=== PATIENT | female | born 1995 | race African-American/Black ===

== ENCOUNTER 2020-07-15 12:51 | Emergency (ER) | payer SELFPAY ==
[~2020-07-15] VITALS: Ht 154.9 cm; Wt 47.0 kg
[2020-07-15 13:26] VITALS: BP 151/85
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
== END 2020-07-15 15:28 | disposition left against medical advice (07) ==
LOC: ER 12:51
DX: R56.9 Unspecified convulsions (principal); F12.10 Cannabis abuse, uncomplicated; F31.9 Bipolar disorder, unspecified; F41.9 Anxiety disorder, unspecified
CPT/HCPCS: 99281

== ENCOUNTER 2020-07-17 10:46 | Emergency (ER) | payer SELFPAY ==
[~2020-07-17] VITALS: Ht 162.6 cm; Wt 54.5 kg
[2020-07-17 11:00] VITALS: BP 151/121
[2020-07-17 11:44] LABS: BASO % 1 % (0-3); EOS % 0 % (0-3); HEMATOCRIT 30.6 % (36.0-47.0); HEMOGLOBIN 9.4 g/dL (12.0-15.5); LYMPH # 0.8 x10^3/uL (1.0-4.8); LYMPH % 11 % (24-48); MEAN CORPUSCULAR HEMOGLOBIN 21 pg (25-35); MEAN CORPUSCULAR HGB CONC 31 g/dL (31-37); MEAN CORPUSCULAR VOLUME 69 fL (79-100); MONO # 0.3 x10^3/uL (0.0-1.1); MONO % 4 % (0-9); NEUT % 85 % (31-73); PLATELET COUNT 435 x10^3/uL (140-400); RED BLOOD COUNT 4.47 x10^6/uL (3.50-5.40); RED CELL DISTRIBUTION WIDTH 18.1 % (11.5-14.5); WHITE BLOOD COUNT 7.1 x10^3/uL (4.0-11.0)
[2020-07-17 11:59] LABS: CREATININE 0.8 mg/dL (0.6-1.0); GFR 105.8; POTASSIUM 3.6 mmol/L (3.5-5.1)
[2020-07-17 12:04] LABS: ACETAMIN < 2 mcg/ml (10-30); ETHANOL < 10 mg/dL (0-10); SALIC 4.7 mg/dL (2.8-20.0)
[2020-07-17 12:08] LABS: ALBUMIN 4.3 g/dL (3.4-5.0); TOTAL BILIRUBIN 0.3 mg/dL (0.2-1.0); TOTAL PROTEIN 8.7 g/dL (6.4-8.2)
[2020-07-17 12:14] LABS: ANISOCYTOSIS MOD; PLT ESTIMATE INCREASED (ADEQUATE)
[2020-07-17 12:15] LABS: POLYCHROMASIA OCCASIONAL
[2020-07-17 12:16] LABS: HYPOCHROMIA SLIGHT
[2020-07-17 12:33] LABS: BILIRUBIN,URINE NEGATIVE (NEG); CLARITY,URINE TURBID; COLOR,URINE YELLOW; NITRITE,URINE NEGATIVE (NEG); PH,URINE 5.5 (<5.0-8.0); PROTEIN,URINE 100 mg/dL (NEG-TRACE); UROBILINOGEN,URINE 0.2 mg/dL (0.2 mg/dL)
[2020-07-17 12:40] LABS: BARBITURATES NEG (NEG); BENZODIAZEPINES NEG (NEG); CANNABINOIDS POS (NEG); COCAINE NEG (NEG); METHADONE NEG (NEG); OPIATES NEG (NEG); PHENCYCLIDINE NEG (NEG)
[2020-07-17 12:41] LABS: AMPHETAMINE/METHAMPHETAMINE NEG (NEG)
[2020-07-17 12:42] LABS: BACTERIA,URINE MOD /HPF (0-FEW); HYALINE CASTS, URINE OCCASIONAL /HPF; RBC,URINE 0 /HPF (0-2)
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
== END 2020-07-17 13:26 | disposition home or self-care (01) ==
LOC: ER 10:46
DX: F41.9 Anxiety disorder, unspecified (principal); F12.10 Cannabis abuse, uncomplicated; F31.9 Bipolar disorder, unspecified
CPT/HCPCS: 36415; 80053; 80307; 80329; 81001; 84702; 85025; 99283; G0480